=== PATIENT | male | born 1980 | race Caucasian/White ===

== ENCOUNTER 2017-01-16 07:23 | Emergency (ER) | payer SELFPAY ==
[~2017-01-16] VITALS: Ht 175.3 cm; Wt 88.0 kg
[2017-01-16 07:27] VITALS: TEMP 37; Ht 175.3 cm; Wt 88.0 kg
[2017-01-16] MEDS ORDERED: ONDANSETRON INJ 2 MG/ML 2 ML VIAL IV STA (07:44)
[2017-01-16] MEDS ORDERED: MoRPHine SULFATE 2 MG/ML CARP IV STA (07:44)
[2017-01-16] MEDS ORDERED: DIPHTHERIA/TETANUS/PERTUSSIS 0.5 ML SYR/VIAL IM. ONE (07:45)
[2017-01-16] MEDS ORDERED: IBUP-103 PO (07:51)
[2017-01-16 07:57] LABS: ISTAT IONIZED CALCIUM 1.14 mmol/l (1.12-1.32)
[2017-01-16] MEDS ORDERED: OPTIRAY 320 IV PRN (08:00)
[2017-01-16] MEDS ORDERED: MoRPHine SULFATE 10 MG/ML CARP/VIAL IV STA (08:21)
[2017-01-16 08:27] LABS: BASO % 0.2 %; BASO ABS # 0.02 K/uL (0-0.2); COMPLETE YES; EOS % 0.7 %; HEMATOCRIT 48.5 % (42-52); IG% 0.3 %; LYMPH % 12.5 %; MEAN CELL VOLUME 94.7 fL (80-100); MEAN CORPUSCULAR HGB CONC 35.9 g/dl (32-36); MEAN PLATELET VOLUME 9.2 fL (7.4-10.4); MONO % 10.8 %; NEUT % 75.5 %; PLATELET COUNT 240 K/uL (130-400); RED BLOOD COUNT 5.12 M/uL (4.7-6.1); WHITE BLOOD COUNT 11.19 K/uL (4.8-10.8)
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
[2017-01-16 08:37] LABS: URINE APPEARANCE CLEAR (CLEAR); URINE BILIRUBIN NEG (NEG); URINE COLOR YELLOW; URINE NITRITE NEG (NEG); URINE PH 5.5 (4.5-7.5); URINE SPECIFIC GRAVITY 1.023 (1.000-1.030); UROBILINOGEN NEG (NEG)
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
[2017-01-16 08:42] LABS: MANUAL MICROSCOPIC REQUIRED? NO; REVIEW REQ? NO
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
[2017-01-16 09:01] LABS: BUN/CREATININE RATIO 10.5 (10-20); CALCIUM 9.1 mg/dl (8.5-10.1); CREATININE 1.1 mg/dl (0.60-1.40); POTASSIUM 4.1 mmol/L (3.5-5.1)
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
[2017-01-16] MEDS ORDERED: OXYCODONE/ACETAMINOPHEN 5-325 TAB PO ONE (10:15)
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
[2017-01-16] MEDS ORDERED: OXYC-57 PO (10:53)
[2017-01-16 11:24] VITALS: BP 135/100
[2017-01-16 11:28] VITALS: PULSE 82; O2SAT 95
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
== END 2017-01-16 11:35 | disposition home or self-care (01) ==
LOC: C.EDB 07:24 → C.EDA 11:35
DX: S06.9X9A Unspecified intracranial injury with loss of consciousness of unspecified duration, initial encounter (principal); M54.2 Cervicalgia; S30.0XXA Contusion of lower back and pelvis, initial encounter; S40.812A Abrasion of left upper arm, initial encounter; S40.811A Abrasion of right upper arm, initial encounter; V86.59XA Driver of other special all-terrain or other off-road motor vehicle injured in nontraffic accident, initial encounter; Y93.89 Activity, other specified; Y99.8 Other external cause status; Z72.0 Tobacco use; Z23 Encounter for immunization